=== PATIENT | female | born 1985 | race Hispanic/Latino ===

== ENCOUNTER → 2024-10-22 | Day surgery (SDC) | payer BC ==
[~2024-10-22] MED LIST: AMITRIPTYLINE H25 MG PO; FENTANYL CITRATE/PF 100MCG/2 ML INJ ONE; LEVONORGESTREL1.5 MG PO; LIDOCAINE HCL 2% LOCAL INJ 5 ML SDV VIAL INJ ONE; MIDAZOLAM HCL 2 MG/2 ML VIAL ONE; PANTOPRAZOLE SO40 MG PO; PROPOFOL IV EMULSION 10 MG/ML 20 ML VIAL ONE; STOOL SOFTENER50 MG PO
[2024-10-22] MEDS: LACTATED RINGER'S 1,000 ML ONE (09:34)
[2024-10-22 11:51] VITALS: TEMP 98.4
[2024-10-22 12:20] VITALS: BP 135/89; PULSE 80; RESP 16; O2SAT 96
== END | disposition home or self-care (01) ==
LOC: OR 08:40
PROVIDERS: ATTEND Internal Medicine Gastroenterology
DX: K29.70 Gastritis, unspecified, without bleeding (principal); K20.90 Esophagitis, unspecified without bleeding; K44.9 Diaphragmatic hernia without obstruction or gangrene; K21.9 Gastro-esophageal reflux disease without esophagitis; K59.09 Other constipation; Z71.3 Dietary counseling and surveillance; Z86.19 Personal history of other infectious and parasitic diseases; R03.0 Elevated blood-pressure reading, without diagnosis of hypertension; Z71.89 Other specified counseling; R06.02 Shortness of breath; E66.01 Morbid (severe) obesity due to excess calories; F41.9 Anxiety disorder, unspecified; Z79.899 Other long term (current) drug therapy; Z68.33 Body mass index [BMI] 33.0-33.9, adult
CPT/HCPCS: 43239; 81025; J2003; J2250; J2470; J2704; J3010; J7121

== ENCOUNTER → 2024-11-16 | Outpatient (REF) | payer BC ==
[~2024-11-16] MED LIST changes: -FENTANYL CITRATE/PF 100MCG/2 ML INJ ONE; -LIDOCAINE HCL 2% LOCAL INJ 5 ML SDV VIAL INJ ONE; -MIDAZOLAM HCL 2 MG/2 ML VIAL ONE; -PROPOFOL IV EMULSION 10 MG/ML 20 ML VIAL ONE
== END ==
LOC: US 09:40
PROVIDERS: ATTEND Nurse Practitioner
DX: R10.10 Upper abdominal pain, unspecified (principal)
CPT/HCPCS: 76700